=== PATIENT | male | born 1995 | race African-American/Black ===

== ENCOUNTER 2024-12-09 09:40 | Emergency (ER) | payer OTHER ==
[~2024-12-09] VITALS: Ht 175.3 cm; Wt 79.0 kg
[2024-12-09 09:47] VITALS: PULSE 58; RESP 16; O2SAT 100
[2024-12-09 09:55] VITALS: BP 121/77; TEMP 36.7; O2SAT 100
[2024-12-09] MEDS ORDERED: ALBU18HF2 IH (10:39)
== END 2024-12-09 10:50 | disposition home or self-care (01) ==
LOC: ER 09:40
DX: J45.909 Unspecified asthma, uncomplicated (principal); Z88.0 Allergy status to penicillin; Z76.0 Encounter for issue of repeat prescription
CPT/HCPCS: 99282; 99283